=== PATIENT | female | born 1995 | race Caucasian/White ===

== ENCOUNTER 2017-08-16 05:47 | Emergency (ER) | payer MEDICAID ==
[~2017-08-16] VITALS: Ht 160 cm; Wt 64.5 kg
[~2017-08-16 05:47] MED LIST: ALBU8.5H3 INH; AZIT250T94 PO; HYDR-906 PO; IBUP-1542 PO
[2017-08-16 05:56] VITALS: Ht 160 cm; Wt 64.5 kg
--- NOTE | 2017-08-16 06:50 | ERD ---
ER Documentation Chief Complaint Date/Time DATE: 08/16/17 TIME: 06:49 Chief Complaint painful urination, vaginal pain HPI This is a 22-year-old female presents the emergency department today complaining of lower pelvic pain that started yesterday. States she took Tylenol for pain. States she does have some dysuria. States her last menstrual period was last month. Denies any vaginal discharge or vaginal bleeding. ROS All systems reviewed and are negative except as per history of present illness. Medications Home Meds Active Scripts Acetaminophen* (Tylophen*) 500 Mg Capsule, 1 CAP PO Q6H Y for PAIN AND OR ELEVATED TEMP, #30 CAP Prov:LOU SOMMERS PA-C 08/16/17 Naproxen* (Naprosyn*) 500 Mg Tablet, 500 MG PO BID Y for PAIN AND/OR INFLAMMATION, #30 TAB Prov:LOU SOMMERS PA-C 08/16/17 Albuterol Sulfate* (Proair HFA*) 8.5 Gm Hfa.aer.ad, 2 PUFF INH Q4H Y for WHEEZING AND SOB, #1 INHALER Prov:MICHAEL PARSONS NP 08/08/16 Hydrocodone/Acetaminophen ([place] 5-325 Tablet) 1 Each Tablet, 1 TAB PO Q6H Y for PAIN, #20 TAB Prov:MICHAEL PARSONS NP 08/08/16 Ibuprofen* (Motrin*) 600 Mg Tab, 600 MG PO Q6H Y for PAIN AND OR ELEVATED TEMP, #30 TAB Prov:MICHAEL PARSONS NP 08/08/16 Azithromycin* (Zithromax*) 250 Mg Tablet, 250 MG PO .ZPACK DIRECTED, #6 TAB TAKE 500 MG (2 TABS) THE FIRST DAY THEN 250 MG (1 TAB) DAYS 2-5 Prov:MICHAEL PARSONS NP 08/08/16 Reported Medications [None] No Conflict Check 09/04/10 Allergies Allergies: Coded Allergies: No Known Allergy (Verified , 09/04/10) PMhx/Soc History of Surgery: No Anesthesia Reaction: No Hx Neurological Disorder: No Hx Respiratory Disorders: No Hx Cardiac Disorders: No Hx Psychiatric Problems: No Hx Miscellaneous Medical Probl: No Hx Alcohol Use: No Hx Substance Use: No Hx Tobacco Use: No Smoking Status: Never smoker Physical Exam Vitals Vital Signs Date Time Temp Pulse Resp B/P Pulse Ox O2 Delivery O2 Flow Rate FiO2 08/16/17 05:56 98.2 73 20 119/70 100 Physical Exam Const: NAD Head: Atraumatic Eyes: Normal Conjunctiva ENT: Normal External Ears, Nose and Mouth. Neck: Full range of motion..~ No meningismus. Resp: Clear to auscultation bilaterally Cardio: Regular rate and rhythm, no murmurs Abd: Soft, suprapubic tenderness, non distended. Normal bowel sounds. No tenderness at McBurney's Skin: No petechiae or rashes Back: No midline or flank tenderness Ext: No cyanosis, or edema Neur: Awake and alert Psych: Normal Mood and Affect Results 24 hrs Laboratory Tests Test 08/16/17 07:25 Bedside Urine pH (LAB) 6.0 Bedside Urine Protein (LAB) Trace Bedside Urine Glucose (UA) Negative Bedside Urine Ketones (LAB) Trace Bedside Urine Blood Trace-intact Bedside Urine Nitrite (LAB) Negative Bedside Urine Leukocyte Esterase (L Negative Current Medications Medications (Trade) Dose Ordered Sig/Nicholas Route PRN Reason Start Time Stop Time Status Last Admin Dose Admin Acetaminophen/ Hydrocodone Bitart ([place] (5/325)) 1 tab ONCE ONCE PO 08/16/17 07:30 08/16/17 07:31 DC 08/16/17 07:24 DIAGNOSTIC IMAGING REPORT Patient: DARCY BENAVIDEZ : 1995 Age: 22 Sex: F MR #: [id number] DOS: 08/16/17 0000 Ordering MD: LOU SOMMERS PA-C Location: [facility] Room/Bed: PROCEDURE: US Pelvis. CLINICAL INDICATION: pelvic pain TECHNIQUE: Multiple sonographic images of the pelvis were obtained utilizing a transabdominal and endovaginal technique. The images were reviewed on a PACS workstation. COMPARISON: None. FINDINGS: The uterus is visualized and measures 6.1 x 6.3 x 8.2 cm. The endometrial echo complex is normal and measures 9.7 mm . The right ovary measures 2.1 x 2.5 x 3.2 cm The left ovary measures 1.9 x 2.6 x 3.5 cm. There is a 2.3 cm simple cyst in the left ovary. A 2.3 cm simple cyst is also seen in the right ovary. There is normal vascular flow to both ovaries. No adnexal masses or free fluid is identified. IMPRESSION: Simple bilateral ovarian cysts are seen, each measuring 2.3 cm in diameter. Otherwise, no significant abnormalities are identified. RPTAT:AAJJ Giovanny Riley, Physician Date Time Electronically viewed and signed by Giovanny Riley, Physician on 08/16/2017 08: 21 [facility]/ CC: LOU SOMMERS PA-C Procedures/MDM UA is negative for infection Urine test Urine was sent for gonorrhea and chlamydia. US pelvis shows simple bilateral ovarian cysts each measuring 2.37 m in diameter. There is normal vascular flow to both ovaries. There is no mass adnexal masses or free fluid. Patient is afebrile and otherwise well-appearing. Low suspicion for ectopic , tubo-ovarian abscess, ovarian torsion. Patient has no tenderness at McBurney's and I have low suspicion for acute surgical abdomen Patient symptoms at this time is consistent with pelvic pain likely related to ovarian cyst. Patient was given [place] here in the emergency department and pain improved. She will be given a prescription for Naprosyn and Tylenol for home and instructed to follow-up with her primary care doctor or [facility] specialist. At this time the patient is stable for discharge and outpatient management. Patient should follow up with their PCP in the next 1-2 days. They may return to the emergency department sooner for any persistent or worsening of symptoms. Patient understood and agreed with the plan. Departure Diagnosis: Primary Impression: Pelvic pain Condition: Fair LOU SOMMERS PA-C Aug 16, 2017 06:50
[2017-08-16 07:18] LABS: URINE BLOOD (Dip) POC Trace-intact (NEGATIVE)
[2017-08-16] MEDS ORDERED: HYDROCODONE/APAP (5/325) TAB PO ONE (07:30)
--- NOTE | 2017-08-16 08:21 | RADRPT ---
PROCEDURE: US Pelvis. CLINICAL INDICATION: pelvic pain TECHNIQUE: Multiple sonographic images of the pelvis were obtained utilizing a transabdominal and endovaginal technique. The images were reviewed on a PACS workstation. COMPARISON: None. FINDINGS: The uterus is visualized and measures 6.1 x 6.3 x 8.2 cm. The endometrial echo complex is normal and measures 9.7 mm . The right ovary measures 2.1 x 2.5 x 3.2 cm The left ovary measures 1.9 x 2.6 x 3.5 cm. There is a 2.3 cm simple cyst in the left ovary. A 2.3 cm simple cyst is also seen in the right ovary. There is normal vascular flow to both ovaries. No adnexal masses or free fluid is identified. IMPRESSION: Simple bilateral ovarian cysts are seen, each measuring 2.3 cm in diameter. Otherwise, no significan t abnormalities are identified. RPTAT:AAJJ Physician Shay Date Time Electronically viewed and signed by Physician Shay on 08/16/2017 08:21 /
[2017-08-16] MEDS ORDERED: ACET500C5 PO (08:57)
[2017-08-16] MEDS ORDERED: NAPR-260 PO (08:57)
[2017-08-16 09:36] VITALS: BP 122/70; PULSE 65; RESP 18; TEMP 98.2
== END 2017-08-16 09:36 | disposition home or self-care (01) ==
LOC: FTE 05:47
DX: R10.2 Pelvic and perineal pain (principal)
CPT/HCPCS: 76856; 81003; Z7502; Z7610

== ENCOUNTER 2017-11-25 08:33 | Emergency (ER) | END 2017-11-25 12:55 | disposition home or self-care (01) ==

== ENCOUNTER 2018-02-26 09:32 | Outpatient (CLI) | END 2018-02-26 14:55 | disposition home or self-care (01) ==

== ENCOUNTER 2018-06-17 08:52 | Outpatient (CLI) | END 2018-06-17 11:27 | disposition home or self-care (01) ==

== ENCOUNTER 2018-06-19 17:08 | Inpatient (IN) | END 2018-06-22 14:40 | disposition home or self-care (01) | DRG 775 ==

== ENCOUNTER 2019-09-08 14:24 | Emergency (ER) | payer MEDICAID ==
[~2019-09-08] VITALS: Ht 152.4 cm; Wt 66.4 kg
[~2019-09-08 14:24] MED LIST changes: -ALBU8.5H3 INH; -AZIT250T94 PO; +FERR256T PO; -HYDR-906 PO; -IBUP-1542 PO; +PNV11TAB PO
[2019-09-08 14:25] VITALS: BP 112/64; PULSE 81; RESP 16; Ht 152.4 cm; Wt 66.4 kg
== END 2019-09-08 16:18 | disposition home or self-care (01) ==
LOC: FTE 14:24
DX: O20.0 Threatened abortion (principal); Z3A.01 Less than 8 weeks gestation of pregnancy
CPT/HCPCS: 36415; 76801; 76817; 81001; 84702; 85025; 86900; 86901; Z7502